=== PATIENT | female | born 1960 | race Caucasian/White ===

== ENCOUNTER 2018-11-29 15:48 | Emergency (ER) | payer OTHER ==
[~2018-11-29] VITALS: Ht 172.7 cm; Wt 108.9 kg
[~2018-11-29 15:48] MED LIST: ALBU90OI INH; ANTI-INFLAMMATORY; ASPI81EC PO; DOCU100 PO; DULERA 200 MCG/13 GM INH; Duoneb 2.5-0.5 M3 ML INH; FOLI1 PO; HTN MED?; KLOR-CON SPRINK8 MEQ PO; LIOT25 PO; LISHYD2025 PO; LISI20 PO; LISI5 PO; MAGOXI400 PO; METO25 PO; Mucinex600 MG PO; NAPR550 PO; NEUTRA-PHOS PO; Nicoderm Cq1 EAC1 TD; ONDA4 PO; Oxazepam10 MG PO; PRED10 PO; PROZAC20 MG PO; Prednisone20 MG PO; THIA100 PO; Zithromax250 MG PO
[2018-11-29] MEDS ORDERED: Diclofenac Sodi50 MG PO (16:01)
[2018-11-29] MEDS ORDERED: DULOXETINE HCL20 MG PO (16:01)
[2018-11-29] MEDS ORDERED: METO50 (16:01)
[2018-11-29] MEDS ORDERED: LOSA50 PO (16:02)
== END 2018-11-29 22:20 | disposition home or self-care (01) ==
LOC: ER 15:48
DX: S63.114A Dislocation of metacarpophalangeal joint of right thumb, initial encounter (principal); Z79.899 Other long term (current) drug therapy; I10 Essential (primary) hypertension; J44.9 Chronic obstructive pulmonary disease, unspecified; E03.9 Hypothyroidism, unspecified; Z87.891 Personal history of nicotine dependence; X58.XXXA Exposure to other specified factors, initial encounter
CPT/HCPCS: 26641; 73140; 96374; 99152; 99283-25; J1170; J7120

== ENCOUNTER 2018-12-14 08:06 | Emergency (ER) | payer OTHER ==
[~2018-12-14] VITALS: Ht 172.7 cm; Wt 108.9 kg
[~2018-12-14 08:06] MED LIST changes: +DULOXETINE HCL20 MG PO; +Diclofenac Sodi50 MG PO; +LOSA50 PO; +METO50
[2018-12-14] MEDS ORDERED: Prozac40 MG PO (09:31)
[2018-12-14] MEDS ORDERED: Percocet 5-3251 EACH PO (10:59)
== END 2018-12-14 11:17 | disposition home or self-care (01) ==
LOC: ER 08:06
DX: S92.211A Displaced fracture of cuboid bone of right foot, initial encounter for closed fracture (principal); S92.341A Displaced fracture of fourth metatarsal bone, right foot, initial encounter for closed fracture; F17.200 Nicotine dependence, unspecified, uncomplicated; Z79.899 Other long term (current) drug therapy; X50.1XXA Overexertion from prolonged static or awkward postures, initial encounter
CPT/HCPCS: 29515; 29705; 73630; 73700; 99284-25

== ENCOUNTER 2018-12-22 10:54 | Day surgery (SDC) | payer OTHER ==
[~2018-12-22] VITALS: Ht 172.7 cm; Wt 108.9 kg
[~2018-12-22 10:54] MED LIST changes: +Percocet 5-3251 EACH PO; +Prozac40 MG PO
[2018-12-22] MEDS ORDERED: METO50ER PO (11:50)
[2018-12-22] MEDS ORDERED: ALBU90OI INH (11:50)
[2018-12-22] MEDS ORDERED: LOSA50 PO (11:51)
[2018-12-22] MEDS ORDERED: ASPI81CH PO (11:51)
[2018-12-22] MEDS ORDERED: TUDORZA PRESS400 MCG INH (11:52)
[2018-12-22] MEDS ORDERED: CHLO25B PO (11:53)
[2018-12-22] MEDS ORDERED: DIPH12.5EL PO (11:54)
[2018-12-22] MEDS ORDERED: FLUO10 PO (11:55)
--- NOTE | 2018-12-22 11:59 | NUR ---
12/22/18 1159 Patience Becerril V PT RESTING IN BED, SIDE RAILS IN PLACE, CALL LIGHT WITHIN REACH, VSS.
--- NOTE | 2018-12-22 14:24 | NUR ---
12/22/18 1424 Aly Chambers PLACED IFU FOR DBX PUTTY AND CANCELLOUS BONE CHIPS IN PATIENT CHART TO BE SCANNED.
--- NOTE | 2018-12-22 16:12 | NUR ---
12/22/18 1612 Lyn Alva LATE ENTRY: PT ARRIVES TO SDU A&O, TRANSFERS WITH ASSISTANCE TO RECLINER, FOOT IS ELEVATED AND ICE IS PLACED UNDER RIGHT KNEE. VSS, COUGH AND DEEP BREATHING IS ENCOURAGED AND INCENTICE SPIROMETRY IS DEMONSTRATED AND SHE IS ABLE TO DEMONSTRATE WELL. FRIEND IS AT HER CHAIRSIDE, SHE IS MEDICATED WITH ORAL PAIN MEDS PER SURGEONS ORDERS.
== END 2018-12-22 16:37 | disposition home or self-care (01) ==
LOC: ORSCSDS 10:54
PROVIDERS: Podiatrist Foot & Ankle Surgery
PROC: 0SGK04Z Fusion of Right Tarsometatarsal Joint with Internal Fixation Device, Open Approach (ICD-10-PCS; principal; 2018-12-22 12:25)
PROC: 0SSK04Z Reposition Right Tarsometatarsal Joint with Internal Fixation Device, Open Approach (ICD-10-PCS; principal; 2018-12-22 12:25)
DX: S92.901A Unspecified fracture of right foot, initial encounter for closed fracture (principal); S92.211A Displaced fracture of cuboid bone of right foot, initial encounter for closed fracture; I10 Essential (primary) hypertension; I48.91 Unspecified atrial fibrillation; J44.9 Chronic obstructive pulmonary disease, unspecified; Z79.82 Long term (current) use of aspirin; Z79.899 Other long term (current) drug therapy; F17.210 Nicotine dependence, cigarettes, uncomplicated
CPT/HCPCS: 84132; C1713; J0690; J1100; J1885; J2250; J2370; J2405; J3010; J7120

== ENCOUNTER 2019-03-08 07:30 | Day surgery (SDC) | payer OTHER ==
[~2019-03-08 07:30] MED LIST changes: +ASPI81CH PO; +CHLO25B PO; +CYCL10 PO; +DIPH12.5EL PO; +FLUO10 PO; +HYDR1TAB94 PO; +METO50ER PO; +TUDORZA PRESS400 MCG INH
== END 2019-03-08 23:22 | disposition home or self-care (01) ==
LOC: WOUND 07:30
DX: T81.31XA Disruption of external operation (surgical) wound, not elsewhere classified, initial encounter (principal); L89.892 Pressure ulcer of other site, stage 2; J44.9 Chronic obstructive pulmonary disease, unspecified; I10 Essential (primary) hypertension; E78.5 Hyperlipidemia, unspecified; I48.91 Unspecified atrial fibrillation; F32.9 Major depressive disorder, single episode, unspecified; F41.9 Anxiety disorder, unspecified; Z87.891 Personal history of nicotine dependence; M79.661 Pain in right lower leg; R22.41 Localized swelling, mass and lump, right lower limb; I82.411 Acute embolism and thrombosis of right femoral vein
CPT/HCPCS: 93971; G0463

== ENCOUNTER 2019-03-15 10:18 | Day surgery (SDC) | payer OTHER | END 2019-03-15 22:45 | disposition home or self-care (01) | LOC: WOUND 10:18 | DX: T81.31XA Disruption of external operation (surgical) wound, not elsewhere classified, initial encounter (principal); L89.892 Pressure ulcer of other site, stage 2; I82.409 Acute embolism and thrombosis of unspecified deep veins of unspecified lower extremity; I10 Essential (primary) hypertension; J44.9 Chronic obstructive pulmonary disease, unspecified; I48.91 Unspecified atrial fibrillation; E78.5 Hyperlipidemia, unspecified; F32.9 Major depressive disorder, single episode, unspecified; F41.9 Anxiety disorder, unspecified; Z87.891 Personal history of nicotine dependence ==

== ENCOUNTER 2019-03-22 00:13 | Day surgery (SDC) | payer OTHER | END 2019-03-22 22:50 | disposition home or self-care (01) | LOC: WOUND 00:13 | DX: T81.31XA Disruption of external operation (surgical) wound, not elsewhere classified, initial encounter (principal); I82.409 Acute embolism and thrombosis of unspecified deep veins of unspecified lower extremity; I10 Essential (primary) hypertension; J44.9 Chronic obstructive pulmonary disease, unspecified; I48.91 Unspecified atrial fibrillation; E78.5 Hyperlipidemia, unspecified; F32.9 Major depressive disorder, single episode, unspecified; F41.9 Anxiety disorder, unspecified; Z87.891 Personal history of nicotine dependence ==

== ENCOUNTER 2019-03-29 00:20 | Day surgery (SDC) | payer OTHER | END 2019-03-29 22:45 | disposition home or self-care (01) | LOC: WOUND 00:20 | DX: T81.89XA Other complications of procedures, not elsewhere classified, initial encounter (principal); L97.512 Non-pressure chronic ulcer of other part of right foot with fat layer exposed; I10 Essential (primary) hypertension; I82.409 Acute embolism and thrombosis of unspecified deep veins of unspecified lower extremity; J44.9 Chronic obstructive pulmonary disease, unspecified; E78.5 Hyperlipidemia, unspecified; I48.91 Unspecified atrial fibrillation; F32.9 Major depressive disorder, single episode, unspecified; F41.9 Anxiety disorder, unspecified; Z87.891 Personal history of nicotine dependence ==

== ENCOUNTER 2019-04-05 00:47 | Day surgery (SDC) | payer OTHER | END 2019-04-05 23:20 | disposition home or self-care (01) | LOC: WOUND 00:47 | DX: T81.31XA Disruption of external operation (surgical) wound, not elsewhere classified, initial encounter (principal); L97.512 Non-pressure chronic ulcer of other part of right foot with fat layer exposed; I82.409 Acute embolism and thrombosis of unspecified deep veins of unspecified lower extremity; J44.9 Chronic obstructive pulmonary disease, unspecified; I10 Essential (primary) hypertension; E78.5 Hyperlipidemia, unspecified; Z87.891 Personal history of nicotine dependence ==

== ENCOUNTER 2019-04-12 12:21 | Day surgery (SDC) | payer OTHER | END 2019-04-12 23:12 | disposition home or self-care (01) | LOC: WOUND 12:21 | DX: T81.89XA Other complications of procedures, not elsewhere classified, initial encounter (principal); L97.512 Non-pressure chronic ulcer of other part of right foot with fat layer exposed; I82.409 Acute embolism and thrombosis of unspecified deep veins of unspecified lower extremity; I10 Essential (primary) hypertension; J44.9 Chronic obstructive pulmonary disease, unspecified; E78.5 Hyperlipidemia, unspecified; I48.91 Unspecified atrial fibrillation; F32.9 Major depressive disorder, single episode, unspecified; F41.9 Anxiety disorder, unspecified; Z87.891 Personal history of nicotine dependence ==

== ENCOUNTER 2019-04-19 12:00 | Day surgery (SDC) | payer OTHER | END 2019-04-19 22:42 | disposition home or self-care (01) | LOC: WOUND 12:00 | DX: L97.512 Non-pressure chronic ulcer of other part of right foot with fat layer exposed (principal); T81.31XD Disruption of external operation (surgical) wound, not elsewhere classified, subsequent encounter; I82.409 Acute embolism and thrombosis of unspecified deep veins of unspecified lower extremity; I10 Essential (primary) hypertension; I48.91 Unspecified atrial fibrillation; J44.9 Chronic obstructive pulmonary disease, unspecified; E78.5 Hyperlipidemia, unspecified; F32.9 Major depressive disorder, single episode, unspecified; F41.9 Anxiety disorder, unspecified; Z87.891 Personal history of nicotine dependence ==

== ENCOUNTER 2019-04-26 10:30 | Day surgery (SDC) | payer OTHER | END 2019-04-26 23:25 | disposition home or self-care (01) | LOC: WOUND 10:30 | DX: T81.31XA Disruption of external operation (surgical) wound, not elsewhere classified, initial encounter (principal); L97.512 Non-pressure chronic ulcer of other part of right foot with fat layer exposed; I82.409 Acute embolism and thrombosis of unspecified deep veins of unspecified lower extremity; M79.661 Pain in right lower leg; J44.9 Chronic obstructive pulmonary disease, unspecified; I10 Essential (primary) hypertension ==

== ENCOUNTER 2019-05-03 12:20 | Day surgery (SDC) | payer OTHER | END 2019-05-03 22:51 | disposition home or self-care (01) | LOC: WOUND 12:20 | DX: T81.89XA Other complications of procedures, not elsewhere classified, initial encounter (principal); L97.512 Non-pressure chronic ulcer of other part of right foot with fat layer exposed; I82.409 Acute embolism and thrombosis of unspecified deep veins of unspecified lower extremity; I10 Essential (primary) hypertension; I48.91 Unspecified atrial fibrillation; J44.9 Chronic obstructive pulmonary disease, unspecified; E78.5 Hyperlipidemia, unspecified; F32.9 Major depressive disorder, single episode, unspecified; F41.9 Anxiety disorder, unspecified; Z87.442 Personal history of urinary calculi | CPT/HCPCS: G0463 ==

== ENCOUNTER → 2019-05-12 | Outpatient (CLI) | payer OTHER ==
[2019-05-16 05:55] LABS: Stool Occult Bld Immuno 1 Negative (NEGATIVE)
== END ==
LOC: LAB 09:00 → LAB SHORT 09:00
PROVIDERS: Nurse Practitioner Family
DX: Z12.11 Encounter for screening for malignant neoplasm of colon (principal)
CPT/HCPCS: G0328